=== PATIENT | female | born 1980 | race Caucasian/White ===

== ENCOUNTER 2021-08-31 09:19 | Day surgery (SDC) | payer OTHER, SELFPAY ==
[~2021-08-31] VITALS: Ht 160 cm; Wt 110.2 kg
[2021-08-31] MEDS ORDERED: BUPIVACAINE-MPF 0.25% 30 ML VIAL INJ ONE (11:20)
[2021-08-31] MEDS ORDERED: SEVOFLURANE 250 ML BTL INH ONE (11:30)
[2021-08-31] MEDS ORDERED: fentaNYL citrate 0.05 MG/ML VIAL ONE (11:35)
[2021-08-31] MEDS ORDERED: PROPOFOL 200 MG/20 ML VIAL IV ONE ×2 (11:47→11:56)
[2021-08-31] MEDS ORDERED: LACTATED RINGERS 1,000 ML IV SCH (11:55)
[2021-08-31] MEDS ORDERED: ONDANSETRON 4 MG/2 ML VIAL IVP PRN (11:55)
[2021-08-31] MEDS ORDERED: diphenhydrAMINE 50 MG/ML VIAL IVP PRN (11:55)
[2021-08-31] MEDS ORDERED: MEPERIDINE 25 MG/ML SYR IVP PRN (11:55)
[2021-08-31] MEDS ORDERED: ePHEDrine 50 MG/ML VIAL ONE ×2 (11:55)
[2021-08-31] MEDS ORDERED: HYDROmorphone 1 MG/ML AMP IVP PRN ×2 (11:55→12:10)
[2021-08-31] MEDS ORDERED: MEPERIDINE 50 MG/ML SYR ONE (11:58)
[2021-08-31] MEDS ORDERED: DEXAMETHASONE 4 MG/ML VIAL ONE (11:59)
[2021-08-31] MEDS ORDERED: ONDANSETRON 4 MG/2 ML VIAL ONE (11:59)
[2021-08-31] MEDS ORDERED: HYDROcodone/APAP 5/325 MG 1 TAB TAB PO PRN (12:10)
[2021-08-31] MEDS ORDERED: MORPHINE SULFATE 2 MG/ML SYR IVP PRN (12:10)
[2021-08-31] MEDS ORDERED: MORPHINE SULFATE 4 MG/ML SYR IV PRN (12:10)
[2021-08-31] MEDS ORDERED: ONDANSETRON 4 MG/2 ML VIAL IV PRN (12:10)
[2021-08-31] MEDS ORDERED: ACET-9527 PO (12:53)
== END 2021-08-31 13:15 | disposition home or self-care (01) ==
LOC: MDS 09:19 → MMU 09:19 → MDS 13:15
PROVIDERS: ATTEND Surgery
DX: L73.2 Hidradenitis suppurativa (principal); J45.909 Unspecified asthma, uncomplicated; E66.9 Obesity, unspecified; Z68.41 Body mass index [BMI] 40.0-44.9, adult; Z79.899 Other long term (current) drug therapy; Z20.822 Contact with and (suspected) exposure to COVID-19
CPT/HCPCS: 10060; 11042; 71045; 87426; 93005; J0690; J1100; J2175; J2405; J2704; J3010; J3490; J7060; J7120